=== PATIENT | female | born 1990 | race Caucasian/White ===

== ENCOUNTER 2025-02-19 20:22 | Inpatient (IN) | payer OTHER ==
[~2025-02-19] VITALS: Ht 162.6 cm; Wt 72.6 kg
[2025-02-19 19:40] VITALS: BP 111/69
[2025-02-19 20:34] VITALS: BP 111/69
[2025-02-19] MEDS ORDERED: BETAMETHASONE ACETATE,SOD PHOS 30 MG/5 ML ML IM STA (20:37)
[2025-02-19] MEDS ORDERED: ACETAMINOPHEN 325 MG TABLET PO PRN (20:45)
[2025-02-19] MEDS ORDERED: MAGNESIUM SULFATE IN WATER 500 ML IV SCH (20:45)
[2025-02-19] MEDS ORDERED: RINGERS SOLUTION,LACTATED 1,000 ML IV SCH (20:45)
[2025-02-19] MEDS ORDERED: FAMOTIDINE/PF 20 MG/2 ML VIAL IV PUSH PRN (20:45)
[2025-02-19] MEDS ORDERED: ONDANSETRON HCL 2 MG/ML VIAL IV PRN (20:45)
[2025-02-19] MEDS ORDERED: MAGNESIUM SULFATE IN WATER 4 GM/100 ML PIGGYBACK IV ONE (20:45)
[2025-02-19] MEDS ORDERED: ADULT LOW DOSE81 M1 PO (21:05)
[2025-02-19] MEDS ORDERED: IRON236 MG PO (21:05)
[2025-02-19] MEDS ORDERED: PRENATAL TABLE1 EAC4 PO (21:05)
[2025-02-19 21:53] LABS: BASO % 0.3 % (0.1-1.2); EOS # 0.50 (0.04-0.54); EOS % 3.6 % (0.7-7.0); LYMPH # 1.60 (1.18-3.74); LYMPH % 11.5 % (19.3-53.1); MEAN PLATELET VOLUME 10.70 fl (9.4-12.4); MONO # 1.41 (0.24-0.82); MONO % 10.1 % (4.7-12.5); NEUT # 10.18 (1.56-6.13); NEUT % 72.9 % (34.0-71.1); RED CELL DISTRIBUTION WIDTH 15.5 % (11.6-14.4)
[2025-02-19 21:54] LABS: URINE APPEARANCE Clear; URINE BACTERIA 2830.8 uL (0.0-1933); URINE BILIRRUBIN Negative (NEGATIVE); URINE BLOOD Negative; URINE COLOR Yellow; URINE EPITHELIAL CELLS 103.6 uL (0.0-38.8); URINE GLUCOSE Negative (NEGATIVE); URINE KETONE Trace (NEGATIVE); URINE LEUKOCYTE Negative; URINE NITRATE Negative; URINE PROTEIN Negative (NEGATIVE); URINE RBC 11.4 uL (0.0-20.8); URINE UROBILINOGEN 0.2 E.U./dl; URINE WBC 52.9 uL (0.0-23.2)
[2025-02-19 22:03] LABS: URINE CAST 0.43 uL (0.0-1.40)
[2025-02-19 22:08] LABS: TYPE CELLS SQUAMOUS; URINE MUCUS SCANT
[2025-02-19 23:17] VITALS: BP 105/67
[2025-02-20 03:22] VITALS: BP 103/59
[2025-02-20 06:09] VITALS: BP 110/65; O2SAT 100
[2025-02-20 11:22] VITALS: BP 106/67
[2025-02-20] MEDS ORDERED: NIFEDIPINE 60 MG TAB.SA.OSM PO SCH (12:00)
[2025-02-20 19:29] VITALS: BP 104/63
[2025-02-20] MEDS ORDERED: BETAMETHASONE ACETATE,SOD PHOS 30 MG/5 ML ML IM NR (21:00)
[2025-02-20 23:17] VITALS: BP 102/60; O2SAT 95
[2025-02-21 04:18] VITALS: BP 99/59
[2025-02-21 07:19] VITALS: BP 99/53
== END 2025-02-21 10:58 | disposition home or self-care (01) | DRG 833 ==
LOC: OBS/DEL 20:22 → LDR 20:38
PROVIDERS: ADMIT Obstetrics & Gynecology; ATTEND Obstetrics & Gynecology
PROC: 4A1HXCZ Monitoring of Products of Conception, Cardiac Rate, External Approach (ICD-10-PCS; principal; 2025-02-19)
PROC: BY4FZZZ Ultrasonography of Third Trimester, Single Fetus (ICD-10-PCS; 2025-02-19)
PROC: BU4CZZZ Ultrasonography of Uterus and Ovaries (ICD-10-PCS; 2025-02-19)
DX: O60.03 Preterm labor without delivery, third trimester (principal); Z3A.33 33 weeks gestation of pregnancy

== ENCOUNTER 2025-03-11 16:27 | Outpatient (CLI) | payer OTHER ==
[~2025-03-11 16:27] MED LIST: ADULT LOW DOSE81 M1 PO; IRON236 MG PO; PRENATAL TABLE1 EAC4 PO
== END 2025-03-11 17:10 | disposition home or self-care (01) ==
LOC: NST 16:27
PROVIDERS: ATTEND Obstetrics & Gynecology Maternal & Fetal Medicine
DX: Z34.83 Encounter for supervision of other normal pregnancy, third trimester (principal)

== ENCOUNTER 2025-03-28 09:12 | Inpatient (IN) | payer OTHER ==
[~2025-03-28] VITALS: Ht 162.6 cm; Wt 77.1 kg
[2025-03-28 09:11] VITALS: BP 138/79
[~2025-03-28 09:12] MED LIST changes: +CEFAZOLIN SODIUM 1,000 MG VIAL ONE
[2025-03-28] MEDS ORDERED: RINGERS SOLUTION,LACTATED 1,000 ML IV SCH (09:30)
[2025-03-28 09:36] LABS: BASO % 0.2 % (0.1-1.2); EOS # 0.14 (0.04-0.54); EOS % 1.3 % (0.7-7.0); LYMPH # 1.66 (1.18-3.74); LYMPH % 15.2 % (19.3-53.1); MEAN PLATELET VOLUME 10.40 fl (9.4-12.4); MONO # 0.84 (0.24-0.82); MONO % 7.7 % (4.7-12.5); NEUT # 8.15 (1.56-6.13); NEUT % 74.3 % (34.0-71.1); RED CELL DISTRIBUTION WIDTH 14.6 % (11.6-14.4)
[2025-03-28] MEDS ORDERED: CEFAZOLIN SODIUM 1,000 MG VIAL IV NR (10:00)
[2025-03-28 10:05] LABS: INR < 0.93
[2025-03-28] MEDS ORDERED: OXYTOCIN 10 UNITS/ML VIAL ONE (10:05)
[2025-03-28] MEDS ORDERED: SUGAMMADEX SODIUM 200 MG/2 ML VIAL IV ONE (10:05)
[2025-03-28] MEDS ORDERED: ERYTHROMYCIN BASE OPHT 1GM EACH TUBE OP ONE (10:06)
[2025-03-28 10:23] LABS: ALT/SGPT 32.0 U/L (12-78); AST/SGOT 17.0 U/L (15-37); BILIRUBIN TOTAL 0.34 mg/dL (0.3-1.2); BUN CREA RATIO 27.0 (7.0-25.0); CREATININE SERUM 0.52 mg/dL (0.55-1.02); GFR 133.43; GLOBULINA 3.9 G/DL (2.4-3.5); GLUCOSE FASTING 107.0 mg/dL (65-100); OSMOLALITY SERUM 282.0 MOSM/KG (275-295)
[2025-03-28] MEDS ORDERED: OXYTOCIN 1,000 ML IV ONE (11:00)
[2025-03-28] MEDS ORDERED: KETOROLAC TROMETHAMINE 30 MG VIAL IV SCH (12:00)
[2025-03-28 15:30] VITALS: BP 109/70
[2025-03-28] MEDS ORDERED: MORPHINE SULFATE 4 MG/ML CARTRIDGE IV PRN (21:30)
[2025-03-29 01:40] VITALS: BP 98/64
[2025-03-29 04:28] VITALS: BP 99/63
[2025-03-29] MEDS ORDERED: ACETAMINOPHEN 500 MG GEL..CAP PO SCH (06:00)
[2025-03-29 06:51] LABS: BASO % 0.2 % (0.1-1.2); EOS # 0.14 (0.04-0.54); EOS % 0.9 % (0.7-7.0); LYMPH # 1.51 (1.18-3.74); LYMPH % 9.6 % (19.3-53.1); MEAN PLATELET VOLUME 10.60 fl (9.4-12.4); MONO # 1.48 (0.24-0.82); MONO % 9.4 % (4.7-12.5); NEUT # 12.49 (1.56-6.13); NEUT % 79.1 % (34.0-71.1); RED CELL DISTRIBUTION WIDTH 14.8 % (11.6-14.4)
[2025-03-29 08:00] VITALS: BP 100/66
[2025-03-29] MEDS ORDERED: GABAPENTIN 300 MG CAPSULE PO SCH (09:00)
[2025-03-29] MEDS ORDERED: PNV,CALCIUM 72/IRON/FOLIC ACID 1 TAB TABLET PO SCH (09:00)
[2025-03-29] MEDS ORDERED: DOCUSATE SODIUM 100MG CAP PO SCH (09:00)
[2025-03-29] MEDS ORDERED: SIMETHICONE 125 MG CAPSULE PO SCH (09:00)
[2025-03-29] MEDS ORDERED: KETOROLAC TROMETHAMINE 30 MG VIAL IV SCH (12:00)
[2025-03-29 16:00] VITALS: BP 117/80
[2025-03-30 00:54] VITALS: BP 116/77
[2025-03-30 04:00] VITALS: BP 118/77
[2025-03-30] MEDS ORDERED: OxyCODONE HCL 5 MG TABLET (ROXICODONE) PO SCH (09:00)
[2025-03-30 10:15] VITALS: BP 130/78
== END 2025-03-30 14:57 | disposition home or self-care (01) | DRG 788 ==
LOC: OB/GYN 09:12 → O/R 09:12 → LDR 09:12 → O/R 10:56 → OB/GYN 13:10
PROVIDERS: ADMIT Obstetrics & Gynecology Gynecology; ATTEND Obstetrics & Gynecology Gynecology
PROC: 4A1HXCZ Monitoring of Products of Conception, Cardiac Rate, External Approach (ICD-10-PCS; 2025-03-28)
PROC: 10D00Z1 Extraction of Products of Conception, Low, Open Approach (ICD-10-PCS; principal; 2025-03-28 10:00)
DX: O45.8X3 Other premature separation of placenta, third trimester (principal); Z3A.38 38 weeks gestation of pregnancy; Z37.0 Single live birth